=== PATIENT | male | born 1980 | race Caucasian/White ===

== ENCOUNTER 2017-08-04 09:04 | Emergency (ER) | payer OTHER ==
[2017-08-04] MEDS ORDERED: Sodium Chloride 0.9% 10 ML Syringe FLUSH PRN (09:10)
[2017-08-04] MEDS ORDERED: Sodium Chloride 0.9% 1,000 ML IV ONE (09:10)
[2017-08-04] MEDS ORDERED: Sodium Chloride 0.9% 2.5 ML Syringe FLUSH PRN (09:10)
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
[2017-08-04] MEDS ORDERED: Iopamidol 755 MG/ML 200 ML Multipack Bottle IVPUSH STA (09:28)
--- NOTE | 2017-08-04 09:45 | CT ---
EXAMINATION: Non contrast CT head. Coronal and sagittal reformats. HISTORY: Pain FINDINGS: No evidence of intra or extra axial hemorrhage, mass, midline shift, hydrocephalus or edema. No hypoattenuation changes in the major vascular territories to suggest acute infarct. No abnormal intracranial calcifications are detected. No evidence of substantial vascular calcificat ions. Paranasal sinuses and mastoid air cells are well aerated without substantial findings. Orbits and gl obes are symmetric. Pituitary fossa appears unremarkable. Calvarium is intact. No evidence of skull fracture. IMPRESSION: No acute intracranial findings.
--- NOTE | 2017-08-04 09:50 | CT ---
EXAMINATION: CT cervical spine HISTORY: Pain COMPARISON: None TECHNIQUE: Axial CT images obtained through the cervical spine without contrast. Coronal and sagittal reconstructions obtained. FINDINGS: The cervical spinal alignment is normal. The vertebral body heights and disc spaces appear well-maintained. Bone mineralization is normal. No fracture or acute osseous abnormality demonstrated . Paravertebral soft tissues are normal. Lung apices are clear. IMPRESSION: Grossly unremarkable CT cervical spine.
--- NOTE | 2017-08-04 09:58 | CT ---
CT of the chest, abdomen and pelvis with contrast. HISTORY: Shortness of breath TECHNIQUE: Axial CT images were obtained of the chest, abdomen and pelvis following administration of Isovue-370 without complication. Coronal and sagittal reconstructions obtained. FINDINGS: Chest: Mild motion artifact is noted otherwise the lungs are clear without focal consolidation. No pl eural effusion or pneumothorax. The heart is normal in size without a pericardial effusion. The heart is normal in size without a pericardial effusion. No mediastinal or hilar lymphadenopathy. No axilla ry lymphadenopathy. Central airways are clear. Thoracic aorta is normal in caliber. Main pulmonary ar teries are patent. Abdomen: The liver, spleen, adrenal glands, and pancreas appear normal. The gallbladder is normal. No bulky retroperitoneal lymphadenopathy or abdominal ascites. The kidneys enhance and function symmetrically without evidence of obstructive uropathy. Pelvis: The large and small bowel are normal in caliber without evidence of obstruction. No pericolon ic inflammation or stranding. No pelvic lymphadenopathy or free pelvic fluid. The urinary bladder is normal. No suspicious osseous abnormalities identified. IMPRESSION: No acute findings identified within the chest, abdomen, or pelvis.
--- NOTE | 2017-08-04 10:02 | CT ---
EXAMINATION: CT facial bones HISTORY: Pain COMPARISON: None TECHNIQUE: Axial CT images obtained through the facial bones without contrast. Coronal and sagittal r econstructions obtained. FINDINGS: The nasal bones appear intact. The zygomatic arches and pterygoid plates are intact. No cheyanne dence of an acute orbital wall fracture. Maxillary luong appear intact. Mild rightward deviation of t he nasal septum. Small vidhi bullosa within the middle turbinates. Periapical lucencies are noted ad jacent to several maxillary incisors. The mandible and temporomandibular joints are preserved. The ma xilla otherwise appears intact. Upper cervical spine is normal. Paranasal sinuses and mastoid air thad ls are grossly clear. Orbits and globes are symmetric. IMPRESSION: No evidence of an acute facial bone injury.
[2017-08-04 10:07] LABS: CHLORIDE,CL 100 mmol/L (98-107); SODIUM,NA 134 mmol/L (136-148)
--- NOTE | 2017-08-04 10:11 | CT ---
EXAMINATION: CT thoracic and lumbar spine with contrast HISTORY: Pain COMPARISON: None TECHNIQUE: Axial CT images obtained through the thoracic and lumbar spine following the administratio n of Isovue-370. Coronal and sagittal reconstructions obtained. FINDINGS: The thoracic spinal alignment is normal. Vertebral body heights and disc spaces appear maintained. No fracture or acute osseous abnormality. Paravertebral soft tissues appear intact. The lumbar spinal alignment is normal. The vertebral body heights and disc spaces appear maintained. There is no fracture or acute osseous abnormality. Bone mineralization is normal. Paravertebral soft tissues are normal. IMPRESSION: No acute osseous abnormality identified.
[2017-08-04] MEDS ORDERED: Acetaminophen 500 MG Tab PO ONE (10:21)
[2017-08-04] MEDS ORDERED: Ketorolac 30 MG/ML SDV IVPUSH ONE (10:21)
== END 2017-08-04 11:10 | disposition home or self-care (01) ==
LOC: MW.ED 09:04
DX: S00.83XA Contusion of other part of head, initial encounter (principal); S20.211A Contusion of right front wall of thorax, initial encounter; V89.2XXA Person injured in unspecified motor-vehicle accident, traffic, initial encounter
CPT/HCPCS: 36415; 70450; 70486; 71260; 72125; 72128; 72131; 74177; 80053; 81001; 83690; 85025; 85610; 93005; 96361; 96374; 99285; A9270; J1885; J7040; Q9967